=== PATIENT | male | born 1970 | race Two or more races ===

== ENCOUNTER 2023-03-29 06:23 | Emergency (ER) | payer OTHER ==
[~2023-03-29] VITALS: Ht 170.2 cm; Wt 81.6 kg
[2023-03-29] MEDS ORDERED: AVAPRO150 MG (06:35)
[2023-03-29 09:02] LABS: HEMATOCRIT 44.1 % (39.0-48.0); HEMOGLOBIN 15.2 g/dL (13-16.00); MEAN CELL VOLUME 91.6 fL (80.0-100.00); MEAN CORPUSCULAR HEMOGLOBIN 31.5 pg (27.00-32.0); MEAN CORPUSCULAR HGB CONC 34.4 g/dl (32.0-36.0); PLATELET COUNT 286 K/uL (150-450); RED BLOOD COUNT 4.81 M/uL (4.00-6.00); RED CELL DISTRIBUTION WIDTH 13.9 % (11.5-14.5)
[2023-03-29 09:36] LABS: CALCIUM 9.1 mg/dL (8.5-10.1); CREATININE SERUM 0.85 mg/dL (0.70-1.30); GFR 93.93; POTASSIUM 3.88 mEq/L (3.5-5.1)
== END 2023-03-29 09:57 | disposition home or self-care (01) ==
LOC: ER 06:23
PROVIDERS: General Practice
DX: I10 Essential (primary) hypertension (principal)

== ENCOUNTER 2023-03-30 23:43 | Emergency (ER) | payer OTHER ==
[~2023-03-30] VITALS: Ht 172.7 cm; Wt 77.1 kg
[~2023-03-30 23:43] MED LIST: AVAPRO150 MG
[2023-03-31] MEDS ORDERED: AVALIDE 300-121 EACH PO (04:49)
== END 2023-03-31 04:55 ==
LOC: ER 23:43
DX: I10 Essential (primary) hypertension (principal)

== ENCOUNTER 2023-04-15 11:50 | Outpatient (CLI) | payer OTHER ==
[~2023-04-15 11:50] MED LIST changes: +AVALIDE 300-121 EACH PO
== END 2023-04-15 12:02 | disposition home or self-care (01) ==
LOC: RAD 11:50
PROVIDERS: ATTEND Orthopaedic Surgery
DX: S82.64XA Nondisplaced fracture of lateral malleolus of right fibula, initial encounter for closed fracture (principal)

== ENCOUNTER 2023-05-25 13:26 | Outpatient (CLI) | payer OTHER | END 2023-05-25 13:32 | disposition home or self-care (01) | LOC: RAD 13:26 | PROVIDERS: ATTEND Orthopaedic Surgery | DX: S82.64XA Nondisplaced fracture of lateral malleolus of right fibula, initial encounter for closed fracture (principal) ==

== ENCOUNTER → 2023-06-08 13:08 | Outpatient (CLI) | payer OTHER | END | disposition home or self-care (01) | LOC: NUCLEAR 13:08 | PROVIDERS: ATTEND Orthopaedic Surgery | DX: M81.0 Age-related osteoporosis without current pathological fracture (principal) ==

== ENCOUNTER → 2023-06-28 09:44 | Outpatient (CLI) | payer OTHER | END | disposition home or self-care (01) | LOC: LAB 09:44 | PROVIDERS: ATTEND Orthopaedic Surgery | DX: E55.9 Vitamin D deficiency, unspecified (principal); M85.9 Disorder of bone density and structure, unspecified; E83.42 Hypomagnesemia; E56.1 Deficiency of vitamin K ==

== ENCOUNTER 2023-07-20 08:20 | Outpatient (CLI) | payer OTHER | END 2023-07-20 08:30 | disposition home or self-care (01) | LOC: RAD 08:20 | PROVIDERS: ATTEND Orthopaedic Surgery | DX: S82.64XA Nondisplaced fracture of lateral malleolus of right fibula, initial encounter for closed fracture (principal) ==

== ENCOUNTER → 2023-09-29 15:35 | Outpatient (CLI) | payer OTHER | END | disposition home or self-care (01) | LOC: RAD 15:35 | PROVIDERS: ATTEND Orthopaedic Surgery | DX: S82.64XG Nondisplaced fracture of lateral malleolus of right fibula, subsequent encounter for closed fracture with delayed healing (principal) ==

== ENCOUNTER 2023-12-17 07:22 | Emergency (ER) | payer OTHER ==
[~2023-12-17] VITALS: Ht 172.7 cm; Wt 81.6 kg
[2023-12-17] MEDS ORDERED: CETIRIZINE HCL 5 MG/5 ML ML PO STA (09:18)
[2023-12-17] MEDS ORDERED: XYZAL5 MG PO (09:37)
== END 2023-12-17 09:45 | disposition home or self-care (01) ==
LOC: ER 07:22
DX: H57.9 Unspecified disorder of eye and adnexa (principal); E05.80 Other thyrotoxicosis without thyrotoxic crisis or storm

== ENCOUNTER 2024-01-26 14:30 | Outpatient (CLI) | payer OTHER ==
[~2024-01-26 14:30] MED LIST changes: +XYZAL5 MG PO
== END 2024-01-26 14:38 | disposition home or self-care (01) ==
LOC: RAD 14:30
PROVIDERS: ATTEND Orthopaedic Surgery
DX: S82.64XG Nondisplaced fracture of lateral malleolus of right fibula, subsequent encounter for closed fracture with delayed healing (principal)

== ENCOUNTER 2024-09-20 13:35 | Outpatient (CLI) | payer OTHER | END 2024-09-20 13:40 | disposition home or self-care (01) | LOC: RAD 13:35 | PROVIDERS: ATTEND Orthopaedic Surgery | DX: S82.64XG Nondisplaced fracture of lateral malleolus of right fibula, subsequent encounter for closed fracture with delayed healing (principal); X58.XXXD Exposure to other specified factors, subsequent encounter ==